=== PATIENT | male | born 2000 | race Caucasian/White ===

== ENCOUNTER → 2023-06-03 | Outpatient (REF) | payer BC ==
[2023-06-03 12:07] LABS: PHOSPHORUS LEVEL 4.1 MG/DL (2.5-4.9)
[2023-06-03 12:08] LABS: TOTAL 25(OH) VITAMIN D 18.9 NG/ML (20.0-100.0)
== END ==
LOC: M SFHCRHEU 10:26
PROVIDERS: ATTEND Internal Medicine
DX: M79.10 Myalgia, unspecified site (principal)